=== PATIENT | male | born 1990 | race African-American/Black ===

== ENCOUNTER 2016-10-25 16:28 | Emergency (ER) | payer OTHER ==
[~2016-10-25] VITALS: Ht 180.3 cm; Wt 83.9 kg
--- NOTE | 2016-10-25 16:30 | NUR ---
Tiffanie joseph in ED - 10/25/16 at [address] Lowery at bedside examining the pt.
[2016-10-25 16:38] VITALS: BP 151/78; PULSE 112; RESP 16; TEMP 98.1; O2SAT 98
--- NOTE | 2016-10-25 16:38 | NUR ---
pt. placed in hallway assumed pt. care
--- NOTE | 2016-10-25 16:40 | NUR ---
dr. Lowery at bedside examining the pt.
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
--- NOTE | 2016-10-25 17:08 | NUR ---
Pt. refused BA draw, [employer] at bedside
--- NOTE | 2016-10-25 17:14 | NUR ---
pt. refused to go to X Ray
[2016-10-25 17:30] VITALS: BP 137/71; PULSE 89; RESP 16; TEMP 98.1; O2SAT 99
--- NOTE | 2016-10-25 17:30 | NUR ---
Patient given written and verbal discharge instructions and verbalizes understanding. ER MD Dr. Lowery discussed with patient the results and treatment provided. Patient in stable condition. ID arm band removed. no Rx given. Patient educated on pain management and to follow up with PMD. Pain Scale 0/10 Opportunity for questions provided and answered.
== END 2016-10-25 17:30 ==
LOC: SED 16:28
DX: S16.1XXA Strain of muscle, fascia and tendon at neck level, initial encounter (principal); V89.2XXA Person injured in unspecified motor-vehicle accident, traffic, initial encounter; Y93.89 Activity, other specified; Y92.89 Other specified places as the place of occurrence of the external cause; Y99.8 Other external cause status
CPT/HCPCS: 99283